=== PATIENT | female | born 1930 | race Caucasian/White ===

== ENCOUNTER 2017-03-11 16:27 | Emergency (ER) | payer MEDICARE ==
[2017-03-11 16:44] VITALS: BP 126/78
--- NOTE | 2017-03-11 17:09 | UC ---
Complaint Female HPI - HPI Summary HPI Summary: Pt presents with c/o urinary frequency, hesitancy and urgency with worsening incontinence X 3 days. - History Of Current Complaint Chief Complaint: UCGU Stated Complaint: URINARY Time Seen by Provider: 03/11/17 16:34 Hx Obtained From: Patient Hx Last Menstrual Period: n/a ?: No Onset/Duration: Gradual Onset, Lasting Days - 3, Still Present Timing: Constant Severity Initially: Mild Severity Currently: Mild Character: Dull Aggravating Factor(s): Urination Associated Signs And Symptoms: Positive: Back Pain - low back discomfort - Risk Factors Ectopic Risk Factor: Negative Ovarian Torsion Risk Factor: Negative - Allergies/Home Medications Allergies/Adverse Reactions: Allergies Allergy/AdvReac Type Severity Reaction Status Date / Time Clarithromycin [From Biaxin] Allergy Dizziness Verified 03/11/17 16:44 Niacin and Related Allergy hot flushes Verified 03/11/17 16:44 Penicillins Allergy Nausea Verified 03/11/17 16:44 PMH/Surg Hx/FS Hx/Imm Hx Previously Healthy: No Endocrine History: Dyslipidemia Cardiovascular History: Hypertension - Surgical History Surgical History: Yes Surgery Procedure, Year, and Place: 1970 hysterectomy. cholecystectomy. tonsils. appy. cataracts 11/2012 - Family History Known Family History: Positive: Cardiac Disease - Social History Occupation: Retired Lives: With Family Alcohol Use: None Substance Use Type: None Smoking Status (MU): Never Smoked Tobacco Have You Smoked in the Last Year: No Review of Systems Constitutional: Negative Skin: Negative Eyes: Negative ENT: Negative Respiratory: Negative Cardiovascular: Negative Gastrointestinal: Abdominal Pain Genitourinary: Frequency, Urgency, Other - incontinence, hesitency Motor: Negative Neurovascular: Negative Musculoskeletal: Myalgia - low back discomfort Neurological: Negative Psychological: Negative All Other Systems Reviewed And Are Negative: Yes Physical Exam Triage Information Reviewed: Yes Appearance: Well-Appearing Vital Signs: Initial Vital Signs Temp 98.6 F 03/11/17 16:40 Pulse 68 03/11/17 16:40 Resp 16 03/11/17 16:40 BP 126/78 03/11/17 16:40 Pulse Ox 97 03/11/17 16:40 Eye Exam: Normal ENT Exam: Normal Neck exam: Normal Respiratory Exam: Normal Cardiovascular Exam: Normal Abdomen Description: Positive: Other: - suprapubic tenderness Musculoskeletal Exam: Normal Neurological Exam: Normal Psychological Exam: Normal Skin Exam: Normal Complaint Female Dx - Differential Dx/Diagnosis Differential Diagnosis/HQI/PQRI: Urinary Tract Infection, Other - urinary incontinence Provider Diagnoses: UTI. urinary incontinence Discharge - Discharge Plan Condition: Stable Disposition: HOME Prescriptions: Phenazopyridine TAB* [Pyridium 100 mg TAB*] 100 mg PO Q8H #6 tab Sulfamethox/Trimethoprim DS* [Bactrim DS 800/160 TAB*] 1 tab PO Q12H #6 tab Patient Education Materials: Urinary Incontinence (ED), Urinary Tract Infection in Women (ED) Referrals: Ramy Delgado MD [Primary Care Provider] - If Needed (Please follow up with your PCP or return to clinic as needed. )
== END 2017-03-11 17:09 | disposition home or self-care (01) ==
LOC: UCCORT 16:27
DX: N39.0 Urinary tract infection, site not specified (principal); B96.20 Unspecified Escherichia coli [E. coli] as the cause of diseases classified elsewhere; B96.1 Klebsiella pneumoniae [K. pneumoniae] as the cause of diseases classified elsewhere; R32 Unspecified urinary incontinence; E78.5 Hyperlipidemia, unspecified; I10 Essential (primary) hypertension; Z90.710 Acquired absence of both cervix and uterus; Z90.49 Acquired absence of other specified parts of digestive tract; Z98.49 Cataract extraction status, unspecified eye; Z88.1 Allergy status to other antibiotic agents; Z88.0 Allergy status to penicillin
CPT/HCPCS: 81003; 87077; 87086; 87186; 99212; G0463

== ENCOUNTER 2017-11-09 18:54 | Emergency (ER) | payer MEDICARE ==
[2017-11-09 19:16] VITALS: BP 165/64
--- NOTE | 2017-11-09 19:23 | UC ---
Complaint Female HPI - HPI Summary HPI Summary: 87 yo F in UC alone c/o urinary frequency, low abd discomfort for 2-[address] Delgado gave her cipro a few weeks ago, that she finished, but "it didn't do the trick". Today she is nauseated, had diarrhea x 1. No fever. No vomiting. Has hx frequent UTI's. Allergies noted. - History Of Current Complaint Chief Complaint: UCGU Stated Complaint: UTI Time Seen by Provider: 11/09/17 19:21 Hx Obtained From: Patient Hx Last Menstrual Period: n/a Onset/Duration: Gradual Onset, Lasting Days, Worse Since - today Timing: Constant Severity Initially: Moderate Severity Currently: Moderate Pain Intensity: 0 Pain Scale Used: 0-10 Numeric Radiates to: no radiation Character: Dull, Burning Aggravating Factor(s): Nothing Alleviating Factor(s): Nothing Associated Signs And Symptoms: Positive: Nausea. Negative: Fever, Vomiting(# Of Episodes =) Related Hx: Similar Episode/Dx as: - UTI - Allergies/Home Medications Allergies/Adverse Reactions: Allergies Allergy/AdvReac Type Severity Reaction Status Date / Time MS Clarithromycin Allergy Dizziness Verified 03/11/17 16:44 [From Biaxin] MS Niacin and Related Allergy hot flushes Verified 03/11/17 16:44 [Niacin and Related] MS Penicillins [Penicillins] Allergy Nausea Verified 03/11/17 16:44 PMH/Surg Hx/FS Hx/Imm Hx Previously Healthy: No Cardiovascular History: Hypertension Respiratory History: COPD, Other - sleep apnea, wears CPAP Other Respiratory History: sleep apnea, wears CPAP - Surgical History Surgical History: Yes Surgery Procedure, Year, and Place: 1971 hysterectomy. cholecystectomy. tonsils. appy. cataracts 11/2012 - Family History Known Family History: Positive: Cardiac Disease - Social History Alcohol Use: None Substance Use Type: None Smoking Status (MU): Never Smoked Tobacco Have You Smoked in the Last Year: No Review of Systems Constitutional: Negative Respiratory: Negative Cardiovascular: Negative Gastrointestinal: Nausea Genitourinary: Dysuria, Frequency, Urgency Motor: Negative Neurovascular: Negative Musculoskeletal: Negative Neurological: Negative Psychological: Negative Is Patient Immunocompromised?: No All Other Systems Reviewed And Are Negative: Yes Physical Exam Triage Information Reviewed: Yes Appearance: Well-Nourished, Ill-Appearing - mild, Pain Distress - mild suprapubic Vital Signs: Initial Vital Signs Temp 99.0 F 11/09/17 19:09 Pulse 62 11/09/17 19:09 Resp 17 11/09/17 19:09 BP 165/64 11/09/17 19:09 Pulse Ox 96 11/09/17 19:09 Vital Signs Reviewed: Yes Eyes: Positive: Conjunctiva Clear ENT: Positive: Normal ENT inspection Neck: Positive: Supple, Nontender, No Lymphadenopathy Respiratory: Positive: Lungs clear, Normal breath sounds, No respiratory distress, No accessory muscle use Cardiovascular: Positive: RRR, No Murmur, Pulses Normal, Brisk Capillary Refill Abdomen Description: Positive: Nontender, No Organomegaly, Soft. Negative: Distended, Guarding Bowel Sounds: Positive: Present Musculoskeletal: Positive: Strength Intact, ROM Intact Neurological: Positive: Alert Psychological Exam: Normal Skin Exam: Normal Complaint Female Dx - Course Course Of Treatment: UA with trace leuks. Will treat with Bactrim, which records show pt has taken in the past without problem. Zofran 4mg ODT given in UC for nausea and Rx sent. - Differential Dx/Diagnosis Differential Diagnosis/HQI/PQRI: Urinary Tract Infection Provider Diagnoses: UTI. HTN in poor control Discharge - Sign-Out/Discharge Documenting (check all that apply): Discharge/Admit/Transfer - home - Discharge Plan Condition: Stable Disposition: HOME Prescriptions: Ondansetron ODT TAB* [Zofran 4 MG Odt TAB*] 4 mg PO Q8H PRN #6 tab.odt PRN Reason: Nausea Sulfamethox/Trimethoprim DS* [Bactrim DS 800/160 TAB*] 1 tab PO BID #20 tab Patient Education Materials: Urinary Tract Infection in Women (ED) Referrals: Ramy Delgado MD [Primary Care Provider] - 2 Days - Billing Disposition and Condition Condition: STABLE Disposition: HOME
[2017-11-09] MEDS ORDERED: Ondansetron ODT TAB* 4 MG PO ONE (19:28)
[2017-11-09] MEDS ORDERED: Sulfamethox/Trimethoprim DS 800/160* TAB PO ONE (19:54)
== END 2017-11-09 19:48 | disposition home or self-care (01) ==
LOC: UCCORT 18:54
DX: N39.0 Urinary tract infection, site not specified (principal); I10 Essential (primary) hypertension; Z88.3 Allergy status to other anti-infective agents; Z88.0 Allergy status to penicillin; Z88.8 Allergy status to other drugs, medicaments and biological substances
CPT/HCPCS: 81003; 87077; 87086; 87186; 99212; A9270-GY; G0463